=== PATIENT | female | born 1990 | race Caucasian/White ===

== ENCOUNTER 2016-09-04 05:52 | Inpatient (IN) | payer BC, OTHER, MEDICAID ==
--- OUTSIDE RECORDS SUMMARY | 2016-09-04 06:01 | XMS REPORT | Continuity of Care Document ---
:1990 Author Organization [facility] ([facility]) Address [address] [place] [address] Phone [phone] Care Team Providers Name Role Phone Manisha Morales Primary Care Provider [phone] Source Comments This disclosure is being made pursuant to the Care Everywhere program, applicable federal and state laws, and may not contain all informaitonavailable regarding this patient.[facility] ([facility]) Active Allergies and Adverse Reactions Allergen Noted Date Severity Reactions Comments Amoxicillin 12/22/2013 Urticaria (Hives) Cotrim 12/22/2013 Urticaria (Hives) Current Medications Prescription Sig. Disp. Refills Start Date End Date Status norgestimate-ethinyl Take 1 Tab by mouth Active estradiol triphasic daily. (ORTHO TRI-CYCLEN) tablet ESCITALOPRAM OXALATE Take by mouth. Active (LEXAPRO PO) HYDROcodone-acetamino Take 1 Tab by mouth 20 Tab 0 12/22/2013 Active phen 5-325 mg per every 4 hours as tablet needed for Pain. DO NOT EXCEED 3,000 MG ACETAMINOPHEN PER DAY FROM ALL SOURCES Indications: PAIN ibuprofen 800 mg Take 1 Tab by mouth 20 Tab 0 12/22/2013 Active tablet every 6 hours as needed for Pain. DO NOT EXCEED 3,200 MG IBUPROFEN PER DAY FROM ALL SOURCES Indications: PAIN Active Problems Problem Noted Date Dental caries 12/22/2013 Social History Tobacco Use Types Packs/Day Years Used Date Former Smoker Cigarettes 0.5 5 Quit: 12/15/2012 Smokeless Tobacco: Never Used Alcohol Use Drinks/Week oz/Week Comments Yes 0 Glasses of wine 0 Cans of beer 1 Standard drinks or equivalent Last Filed Vital Signs Vital Sign Reading Time Taken Blood Pressure 145/69 12/22/2013 4:30 PM CDT Pulse 92 12/22/2013 4:30 PM CDT Temperature 36 C (96.8 F) 12/22/2013 3:17 PM CDT Respiratory Rate - - Height - - Weight - - Body Mass Index - - Oxygen Saturation - - Plan of Care Health Maintenance Due Date Last Done Comments Hepatitis B Vaccine (1 of 3 - Primary Series) 1990 HPV Vaccine (1 of 3 - Female/Unknown 3 Dose Series) 2002 Tdap Vaccine 2002 Cervical Cancer Screening 2009 Lipid Disorder Screening 2009 MMR Vaccine 2009 Td Vaccine 2009 Varicella Vaccine (1 of 2 - Adult - No Evidence of 2009 Immunity) Influenza Vaccine: Seasonal (#1) 12/06/2015 Results from Last 3 Months Not on file
[2016-09-04] MEDS ORDERED: LIDOCAINE HCL 50 ML VIAL PERI PRN (06:02)
[2016-09-04] MEDS ORDERED: ONDANSETRON HCL/PF 2 MG/ML VIAL IV PRN ×2 (06:02→12:00)
[2016-09-04] MEDS ORDERED: OXYTOCIN/DEXTROSE 5%-WATER 30 UNITS/500 ML BAG IV ONE (06:02)
[2016-09-04] MEDS ORDERED: RINGERS SOLUTION,LACTATED 1,000 ML IV ONE (06:02)
[2016-09-04] MEDS ORDERED: DEXTROSE 5%-LACTATED RINGERS 1,000 ML IV PRN (06:07)
--- NOTE | 2016-09-04 08:59 | PN ---
Progess Note - Interim Narrative: 09/04/16 08:57 Patient fairly comfortable with contractions Vital signs stable. Pitocin at 6 mu/min. FHT: 140 baseline, reassuring Contractions q 2-3 min Cervix: 70/-2 Impression: Intrauterine at 39 weeks elective induction of labor Plan: Continue present plan
[2016-09-04 09:15] LABS: Hematocrit 30.9 % (37.0-47.0); Hemoglobin 9.3 gm/dL (12.5-16.0); Mean Cell Volume 73.6 fl (78-100); Mean Corpuscular Hemoglobin 22.1 pg (27-31); Mean Corpuscular Hgb Conc 30.1 g/dl (32-36); Mean Platelet Volume 9.8 fl (6.0-9.5); Neutrophil # 5.4 K/mm3 (1.3-6.0); Neutrophil % 71.6 % (42-75.0); Platelet Count 276 K/mm3 (150-450); White Blood Count 7.6 K/mm3 (4.0-10.5)
[2016-09-04] MEDS ORDERED: fentaNYL CITRATE/PF 50 MCG/ML AMPUL IT SCH (12:00)
[2016-09-04] MEDS ORDERED: BUPIVACAINE HCL/0.9 % NACL/PF 250 ML EP PRN (12:00)
[2016-09-04] MEDS ORDERED: NALOXONE HCL 1 MG/1 ML SYRG IV PRN (12:00)
--- NOTE | 2016-09-04 13:12 | PN ---
Progess Note - Interim Narrative: 09/04/16 13:03 Patient comfortable with epidural Vital signs stable. Pitocin at 9 mu/min. FHT: 140 baseline, reassuring Contractions q 2-3 min Cervix: 4/90/-2, AROM-clear Impression: Intrauterine at 39 weeks elective induction of labor Plan: Continue present plan
--- NOTE | 2016-09-04 15:07 | OR ---
Anesthesia Procedure Note - Anesthesia Procedure Note Narrative: Vital Signs - Last Taken Temp 36.3 C L 09/04/16 12:02 Pulse 101 H 09/04/16 12:02 Resp 20 09/04/16 12:02 BP 127/75 09/04/16 12:02 Pulse Ox 99 09/04/16 12:02 09/04/16 15:07 ANESTHESIA PROCEDURE NOTE Date of Procedure: 09/04/2016 Time of procedure: 1220. Performed by: Vince Jesus CRNA Cafe Manager: None. Preprocedure diagnosis: Active labor. Post procedure diagnosis: Same. Procedure: Insertion of labor epidural. Indications: The patient is a 26 -year-old multigravida female in active labor requesting labor epidural for pain management. Findings: See below. Details of the procedure: The patient was placed in a sitting position. Back was prepped with DuraPrep. Patient was then draped in a sterile fashion. Lidocaine 1% was infiltrated to the skin and subcutaneous tissues at the level of the L3 4 interspace. The epidural space was identified using a 18-gauge Tuohy needle with [id number] technique. 20 mcg fentanyl was given intrathecally using a 27 ga. spinal needle. Epidural catheter was inserted without difficulty. Negative test dose was elicited using 5 mL of 1.5% preservative-free lidocaine plus epinephrine 1 200,000. The epidural catheter was then taped and secured in place. EBL: Minimal. Fluids: N/A. Specimen: N/A. Post procedure condition: The patient tolerated the procedure well. No complications were noted. Thank you for this consultation. Cobb CRNA
[2016-09-04] MEDS ORDERED: BISACODYL 10 MG SUPP.RECT RC PRN (17:09)
[2016-09-04] MEDS ORDERED: BENZOCAINE/MENTHOL 81 SPRAY CAN TP PRN (17:09)
[2016-09-04] MEDS ORDERED: oxyCODONE HCL/ACETAMINOPHEN 1 TAB TABLET PO PRN (17:09)
[2016-09-04] MEDS ORDERED: SENNOSIDES 8.6 MG TABLET PO PRN (17:09)
[2016-09-04] MEDS ORDERED: IBUPROFEN 800 MG TABLET ONE (17:37)
[2016-09-04] MEDS: IBUPROFEN 800 MG TABLET PO PRN (17:50)
[2016-09-04] MEDS: oxyCODONE HCL/ACETAMINOPHEN 1 TAB TABLET PO PRN ×2 (17:53→21:39)
[2016-09-04] MEDS: DOCUSATE SODIUM 100 MG CAPSULE PO SCH (20:38)
[2016-09-04] MEDS: LORazepam 1 MG TABLET PO PRN (20:38)
[2016-09-05] MEDS: IBUPROFEN 800 MG TABLET PO PRN ×3 (00:01→15:54)
[2016-09-05] MEDS: oxyCODONE HCL/ACETAMINOPHEN 1 TAB TABLET PO PRN ×6 (01:32→19:45)
[2016-09-05] MEDS: DOCUSATE SODIUM 100 MG CAPSULE PO SCH ×3 (07:55→21:01)
[2016-09-05] MEDS ORDERED: PRENATAL VIT PO SCH (09:00)
[2016-09-05] MEDS ORDERED: [UNRECOGNIZED DRUG - OTHER] PO SCH (09:00)
[2016-09-05] MEDS ORDERED: FERROUS FUM PO SCH (09:00)
[2016-09-05] MEDS: PRENATAL VIT#96/FERROUS FUM/FA 1 TAB TABLET PO SCH (11:22)
[2016-09-05] MEDS: LORazepam 1 MG TABLET PO PRN (16:50)
[2016-09-06] MEDS: IBUPROFEN 800 MG TABLET PO PRN ×2 (00:01→06:57)
[2016-09-06] MEDS: oxyCODONE HCL/ACETAMINOPHEN 1 TAB TABLET PO PRN ×3 (00:01→06:57)
[2016-09-06] MEDS: LORazepam 1 MG TABLET PO PRN (06:57)
[2016-09-06 09:36] VITALS: BP 119/67
[2016-09-06] MEDS: DOCUSATE SODIUM 100 MG CAPSULE PO SCH (09:57)
[2016-09-06] MEDS: PRENATAL VIT#96/FERROUS FUM/FA 1 TAB TABLET PO SCH (09:57)
--- NOTE | 2016-09-06 11:12 | OR ---
Operative Report - Dictated Report Narrative: Late note for 09/04/2016 Spontaneous vaginal delivery of viable female in IRENE position at 1526 on 09/04/2016 with Apgars 9 and 9, weighing 3937 g. Cord clamping delayed approximately 1 minute Placenta delivered complete, intact, with three vessel cord Estimated blood loss: less than 50 ml Lacerations: None History for MU Definition: * The number of deliveries resulting in a live the patient experienced prior to current hospitalization * The previous delivery of live twins or any live multiple gestation is considered one live event. *If primagravida or nulliparous is documented select zero for the number of previous live births. Live Events: 3
--- NOTE | 2016-09-06 11:14 | PN ---
Subjective - Date and Time Seen Date: 09/05/16 Time: 08:20 Objective - Vitals Vitals: Last Vital Signs Temp 36.9 C 09/06/16 06:45 Pulse 126 H 09/06/16 06:45 Resp 20 09/06/16 06:45 BP 119/67 09/06/16 06:45 Pulse Ox 98 09/06/16 06:45 Patient feeling anxious and requesting to be restarted on anti-anxiety medication. Lochia wnl Abdomen - soft, nontender Uterus - firm, at umbilicus - 1 No calf tenderness Impression: day #1 - s/p spontaneous vaginal delivery. Anxiety disorder. Plan: Continue routine care. Ativan 0.5 mg by mouth every 8 hours when necessary anxiety. Cauti Physician Documentation - Urinary Catheter Management Urethral (Cuevas) Date of Insertion: 09/04/16 Time of Insertion: 13:00
--- NOTE | 2016-09-06 11:15 | PN ---
Subjective - Date and Time Seen Date: 09/06/16 Time: 11:14 Objective - Vitals Vitals: Last Vital Signs Temp 36.9 C 09/06/16 06:45 Pulse 126 H 09/06/16 06:45 Resp 20 09/06/16 06:45 BP 119/67 09/06/16 06:45 Pulse Ox 98 09/06/16 06:45 Patient denies complaints. Anxiety well controlled on Ativan. Lochia wnl Abdomen - soft, nontender Uterus - firm, at umbilicus - 2 No calf tenderness Impression: day #2 - s/p spontaneous vaginal delivery. Anxiety disorder. Plan: Routine discharge instructions. Patient to start Lexapro 10 mg by mouth daily for anxiety. Cauti Physician Documentation - Urinary Catheter Management Urethral (Cuevas) Date of Insertion: 09/04/16 Time of Insertion: 13:00
== END 2016-09-06 14:20 | disposition home or self-care (01) | DRG 775 ==
LOC: OB 05:52 → MS 09-06 07:03
PROVIDERS: ADMIT Obstetrics & Gynecology; ATTEND Obstetrics & Gynecology
PROC: 10E0XZZ Delivery of Products of Conception, External Approach (ICD-10-PCS; principal; 2016-09-04)
PROC: 3E033VJ Introduction of Other Hormone into Peripheral Vein, Percutaneous Approach (ICD-10-PCS; 2016-09-04)
PROC: 10907ZC Drainage of Amniotic Fluid, Therapeutic from Products of Conception, Via Natural or Artificial Opening (ICD-10-PCS; 2016-09-04)
PROC: 4A1HXCZ Monitoring of Products of Conception, Cardiac Rate, External Approach (ICD-10-PCS; 2016-09-04)
PROC: 3E0S3CZ (ICD-10-PCS; 2016-09-04)
DX: O80 Encounter for full-term uncomplicated delivery (principal); F41.1 Generalized anxiety disorder; Z3A.39 39 weeks gestation of pregnancy; Z37.0 Single live birth

== ENCOUNTER 2017-02-01 11:13 | Emergency (ER) | payer BC, OTHER, MEDICAID ==
[2017-02-01 11:22] VITALS: BP 124/81
--- NOTE | 2017-02-01 11:55 | ERNOTE ---
Integumentary HPI - General Presenting Symptoms: abscess Time Seen by Provider: 02/01/17 11:41 Source: patient Exam Limitations: no limitations - Immun/Allergies/Home Medications Immunizations: IMMUNIZATION HX Immunizations Up to Date Yes History of Influenza Vaccine No Hx Pneumococcal Vaccination No Allergies/Adverse Reactions: Allergies Allergy/AdvReac Type Severity Reaction Status Date / Time amoxicillin [Amoxicillin] Allergy Hives Verified 02/01/17 11:22 sulfamethoxazole Allergy Hives Verified 02/01/17 11:22 [From Bactrim] trimethoprim [From Bactrim] Allergy Hives Verified 02/01/17 11:22 Home Medications: HOME MEDICATIONS Alprazolam [Xanax] 0.25 mg PO PRN PRN 02/01/17 [Last Taken Unknown] Lisdexamfetamine Dimesylate [Vyvanse] 10 mg PO DAILY 02/01/17 [Last Taken Unknown] - History of Present Illness Narrative: Patient noticed a red area on her right index finger five days ago, a pustule developed two days ago, she was seen in the walk in clinic yesterday, drainage was attempted with no significant pus coming out. Patient received a RX for clindamycin, the antibiotic was not available at her pharmacy so she has not started it yet, denies any other symptoms Review of Systems - Review of Systems Constitutional: Absent: recent illness, fever ENT: Absent: nose pain Respiratory: Absent: shortness of breath Cardiology: Absent: chest pain Gastrointestinal/Abdominal: Absent: nausea, vomiting, abdominal pain Genitourinary: Present: no symptoms reported Musculoskeletal: Present: See HPI Skin: Present: See HPI Neurological: Absent: weakness, numbness - Patient's Past Medical History Patient History - Medical: Headache Patient History - Cardiac/Respiratory: No pertinent hx Patient History - Cancer: No Hx of Cancer Patient History - Surgical Procedures: Ear Tubes Patient History - Other: None - Social History Living Situations: significant other Abuse History: No History of abuse Psych History: No pertinent hx Smoking Status: Never smoker Have you smoked in the past 12 months: No Alcohol Use: none Drug Use: none - Immunizations Immunizations Up to Date: Yes Hx Pneumococcal Vaccination: No History of Influenza Vaccine: No Physical Exam - Physical Exam General Appearance: Present: wd/wn, alert, no apparent distress Respiratory: Present: no respiratory distress Extremity Exam: Present: normal except - - right inde finger: over proximal phalanx dorsally about 2cm area of induration, swelling and erythema with small central pustule, normal range of motion, no involvment of flexor compartment, no lymphangitis Neurological Exam: Present: alert, oriented, normal mood/affect, no motor/ sensory deficits Skin Exam: Present: normal color, warm/dry ED Progress - Results and Orders Patient's Lab Results:: I have reviewed the patient's lab results. - culture from yesterday : no growth - Vital Signs Patient's Vital Signs:: I have reviewed the patient's vital signs. Vital Signs: Vital Signs 02/01/17 11:19 Temperature 36.8 C Pulse Rate 103 H Respiratory 14 Rate Blood Pressure 124/81 O2 Sat by Pulse 98 Oximetry - Progress/Reassessment Chief Complaint: Abscess Progress Note-Subjective: 02/01/17 11:45 discussed need to start antibiotic ALLISON (got voicemail from her pharmacy that med is available now), no indication for repeat attempt to I&D at this point Departure Clinical Impression: Abscess of finger, right - Departure Disposition: Home self-care Condition: Good Instructions: Abscess, [id number] Additional Instructions: take the antibiotic as prescribed, follow up with your doctor net week, return to the ER if symptoms do not improve over the next 2-3 days Referrals: Manisha Morales MD [Primary Care Provider] -
== END 2017-02-01 11:59 | disposition home or self-care (01) ==
LOC: ER 11:13
DX: L02.511 Cutaneous abscess of right hand (principal)

== ENCOUNTER 2017-03-20 18:24 | Emergency (ER) | payer BC, OTHER, MEDICAID ==
[2017-03-20 18:31] VITALS: BP 132/79
[2017-03-20] MEDS ORDERED: DIPHTH,PERTUSS(ACELL),TET VAC 0.5 ML VIAL IM ONE ×2 (18:42)
--- NOTE | 2017-03-20 18:45 | ERNOTE ---
Medical Problem HPI - General Chief Complaint: Laceration Time Seen by Provider: 03/20/17 18:33 Source: patient Exam Limitations: no limitations - Immun/Allergies/Home Medications Immunizations: IMMUNIZATION HX Immunizations Up to Date Yes History of Influenza Vaccine No Hx Pneumococcal Vaccination No Allergies/Adverse Reactions: Allergies amoxicillin [Amoxicillin] Allergy (Verified 03/20/17 18:31) Hives sulfamethoxazole [From Bactrim] Allergy (Verified 03/20/17 18:31) Hives trimethoprim [From Bactrim] Allergy (Verified 03/20/17 18:31) Hives Home Medications: HOME MEDICATIONS Dextroamphetamine/Amphetamine [Adderall 20 mg Tablet] 20 mg PO DAILY 03/20/17 [ Last Taken Unknown] - History of Present History Narrative: Patient was putting together a clothing rack and got her left thumb web pinched between 2 pieces of metal. Timing: constant Severity: mild Review of Systems - Review of Systems Constitutional: Present: See HPI EYE: Present: no symptoms reported ENT: Present: no symptoms reported Respiratory: Present: no symptoms reported Cardiology: Present: no symptoms reported Gastrointestinal/Abdominal: Present: no symptoms reported Genitourinary: Present: no symptoms reported Musculoskeletal: Present: no symptoms reported Skin: Present: no symptoms reported Neurological: Present: no symptoms reported Endocrine: Present: no symptoms reported Hematologic/Lymphatic: Present: no symptoms reported Psych: Present: no symptoms reported - Patient's Past Medical History Patient History - Medical: Headache Patient History - Cardiac/Respiratory: No pertinent hx Patient History - Cancer: No Hx of Cancer Patient History - Surgical Procedures: Ear Tubes Patient History - Other: None LMP (females 10-50): last week - Social History Living Situations: home Abuse History: No History of abuse Psych History: No pertinent hx Smoking Status: Current every day smoker - Immunizations Immunizations Up to Date: Yes Hx Pneumococcal Vaccination: No History of Influenza Vaccine: No Physical Exam - Physical Exam General Appearance: Present: wd/wn, alert, mild distress Eye Exam: Normal inspection: bilateral, PERRL: bilateral Ears, Nose, Throat: Present: normal ENT inspection, H, normal pharynx Neck: Present: normal inspection, nontender Respiratory: Present: no respiratory distress, normal breath sounds, no accessory muscle use, chest nontender, lungs clear Cardiovascular/Chest: Present: regular rate, rhythm, no murmur, normal peripheral pulses Gastrointestinal/Abdominal: Present: normal bowel sounds, nontender, nondistended, soft, no organomegaly Rectal Exam: Present: deferred Back Exam: Present: normal inspection, normal range of motion Extremity Exam: Present: normal range of motion, no edema, other - no sewable laceration is present in the left thumb web, more the pinch of the skin with a small abrasion Neurological Exam: Present: alert, oriented, normal mood/affect Skin Exam: Present: normal color, warm/dry Lymphatic Exam: Present: no adenopathy ED Progress - Vital Signs Patient's Vital Signs:: I have reviewed the patient's vital signs. Vital Signs: Vital Signs 03/20/17 18:28 Temperature 37.0 C Pulse Rate 98 Respiratory 18 Rate Blood Pressure 132/79 O2 Sat by Pulse 100 Oximetry - Progress/Reassessment Chief Complaint: Laceration Plan - Plan Plan: Patient was given an Adacel injection, the wound was Steri-Stripped and she will follow up with her family physician as needed Departure Clinical Impression: Laceration - Departure Disposition: Home self-care Condition: Good Instructions: Laceration Care, Adult, [id number] Referrals: Manisha Morales MD [Primary Care Provider] -
== END 2017-03-20 18:50 | disposition home or self-care (01) ==
LOC: ER 18:24
DX: S61.412A Laceration without foreign body of left hand, initial encounter (principal); W23.0XXA Caught, crushed, jammed, or pinched between moving objects, initial encounter; Y93.89 Activity, other specified; Z23 Encounter for immunization; F17.200 Nicotine dependence, unspecified, uncomplicated